=== PATIENT | male | born 2000 | race African-American/Black ===

== ENCOUNTER 2021-02-11 12:05 | Emergency (ER) | payer SELFPAY ==
[~2021-02-11] VITALS: Ht 167.6 cm; Wt 50.0 kg
[2021-02-11] MEDS ORDERED: LIDOCAINE HCL 1% 20ML VIAL (Pyxis) INJ INFIL ONE (16:45)
[2021-02-11] MEDS ORDERED: CEFTRIAXONE SODIUM 500 MG/VIAL IM ONE (16:45)
[2021-02-11 17:37] VITALS: BP 118/72
[2021-02-14 10:07] LABS: NEISSERIA GONORRHOEAE NAA Positive (Negative)
== END 2021-02-11 17:38 | disposition home or self-care (01) ==
LOC: ER 12:05
DX: A54.00 Gonococcal infection of lower genitourinary tract, unspecified (principal); Z72.51 High risk heterosexual behavior
CPT/HCPCS: 87491; 87591; 96372; 99283; J0696; J3490